=== PATIENT | male | born 1960 | race Caucasian/White ===

== ENCOUNTER 2023-11-06 06:03 | Observation (INO) ==
--- NOTE | 2023-10-21 14:11 | Anesthesiology Consultation ---
Date of Service October 21, 2023 Assessment & Plan (1) Encounter for pre-operative examination: Infectious disease screening: Per assessment on 10/21/23: No known infectious disease contacts or current infectious disease symptoms. No noted recent Covid positive test result. Chart Review Chart Review: Acceptable Risk for Surgery and Patient NOT seen in Pre Admission Testing History Surgery Operation Date: 11/06/23 07:30 Proposed Procedures p Robotic Laparoscopic Assisted Radical Retropubic Prostatectomy, Possible Open, Possible Pelvic Lymph Node Dissection - Jr Weaver MD Height/Weight Height: 5 ft 9 in Weight: 79.379 kg Allergies Allergy/AdvReac Type Severity Reaction Status Date / Time No Known Allergies Allergy Verified 10/21/23 12:53 Medications Home Medications Medication Instructions Recorded Confirmed Last Taken multivitamin 1 tab PO QAM 10/21/23 10/21/23 Unknown Past Medical History Medical History History of migraine Prostate cancer Dx 08/2023 Past Family History Family History Father Prostate cancer Mother No problems noted. Sister No problems noted. Sister No problems noted. Brother No problems noted. Brother No problems noted. Daughter No problems noted. Brother No problems noted. Son No problems noted. Past Surgical History Surgical History History of ankle surgery History of colonoscopy History of prostate biopsy History of tonsillectomy History of wisdom tooth extraction Social History Smoking Status: Current every day smoker Smoking cigarettes per day: 1 ppd Do You Dip or Chew Tobacco: Yes (occ) Hx Alcohol Use: Yes Alcohol type: beer and wine alcohol intake frequency: a few times a week Hx Substance Use: No substance use type: does not use Lab Results Anesthesia Preop Results Results Anesthesia Widget: WBC 7.84 K/ul (4.8-10.8) 10/09/23 Hgb 16.3 g/dl (14.0-18.0) 10/09/23 Hct 45.8 % (42.0-52.0) 10/09/23 Plt 242 K/uL (130-400) 10/09/23 Na 136 mmol/L (136-145) 10/09/23 K 4.2 mmol/L (3.5-5.1) 10/09/23 Cl 105 mmol/L (98-107) 10/09/23 CO2 27 mmol/L (21-32) 10/09/23 BUN 9 mg/dl (6-23) 10/09/23 Creat 0.88 mg/dl (0.6-1.4) 10/09/23 Glucose Level 102 mg/dl (70-99(Fasting)) H 10/09/23 Testing Laboratory Results UA (10/06/23)- negative Urine culture (10/06/23)- no growth Electrocardiogram Date: 10/09/23 NSR at 71bpm. iRBBB. Chest X-Ray Date: 10/09/23 FINDINGS: Lung volumes are normal. Lungs are clear. Suspected nipple shadows project over the lungs. There is no pneumothorax or pleural effusion. Cardiac size is normal. Mediastinal contours are normal. There is no evidence for pulmonary edema. IMPRESSION: No acute cardiopulmonary findings.
[2023-11-06] MEDS: LACTATED RINGER'S 1,000 ML IV SCH ×2 (06:37→14:30)
[2023-11-06] MEDS: LR 15ML/HR IV SCH (06:37)
[2023-11-06] MEDS: HEPARIN SOD 5,000 UNIT/0.5 ML VIAL SQ SCH ×2 (06:44→20:39)
[2023-11-06] MEDS ORDERED: HYDROmorphone INJ 2 MG/ML SYR/VIAL IV PRN (06:55)
[2023-11-06] MEDS ORDERED: PROMETHAZINE HCL 6.25 MG in SODIUM CHLORIDE 0.9% 50 ML IV PRN (06:55)
[2023-11-06] MEDS ORDERED: ATROPINE SULFATE 0.1 MG/ML 10ML SYR IV PRN (06:55)
[2023-11-06] MEDS ORDERED: ePHEDrine sulfate 50 MG/ML AMP IV PRN (06:55)
[2023-11-06] MEDS ORDERED: ONDANSETRON INJ 2 MG/ML 2 ML VIAL IV PRN ×2 (06:55→13:57)
[2023-11-06] MEDS ORDERED: ONDANSETRON INJ 2 MG/ML 2 ML VIAL ONE (06:56)
[2023-11-06] MEDS ORDERED: MIDAZOLAM HCL 1 MG/ML 2ML VIAL ONE (06:56)
[2023-11-06] MEDS ORDERED: LIDOCAINE 2% 2 ML VIAL/AMP(20MG/ML) INFIL ONE (06:56)
[2023-11-06] MEDS ORDERED: ROCURONIUM BROMIDE 10 MG/ML 5 ML VIAL IV ONE ×2 (06:56→08:23)
[2023-11-06] MEDS ORDERED: fentaNYL citrate PF 100 MCG/2 ML VIAL ONE (06:57)
[2023-11-06] MEDS ORDERED: SUGAMMADEX SODIUM 200 MG/2 ML VIAL IV ONE (06:57)
--- NOTE | 2023-11-06 07:44 | History & Physical Bridge Note ---
Date of Service November 06, 2023 History & Physical Bridge Note I have examined the patient, reviewed the History & Physical and in the interval since the performance of the History & Physical I have noted the following changes of clinical significance: no changes noted
[2023-11-06] MEDS: ceFAZolin 2000MG 2,000 MG/15 ML SYR IV SCH ×2 (08:02→15:55)
[2023-11-06] MEDS ORDERED: HYDROmorphone INJ 2 MG/ML SYR/VIAL ONE (08:22)
[2023-11-06] MEDS ORDERED: PHENYLEPHRINE 100MCG/ML 10ML SYR IV ONE (11:36)
[2023-11-06] MEDS: SURGICEL ABSORB HEMOSTAT 2IN X 14IN TOP ONE (11:42)
[2023-11-06] MEDS: BUPIVACAINE 0.5 % 5 MG/1 ML MPF 30ML VIAL ONE (11:58)
--- NOTE | 2023-11-06 12:15 | Operative Report ---
PG Post Operative Report Pre & Post Diagnosis Operation Date: 11/06/23 07:30 Pre-Op Diagnosis: Malignant Neoplasm of Prostate Post-Op Diagnosis: Malignant Neoplasm of Prostate I identified the patient and participated in the time-out.: Yes Procedure Operation Date: 11/06/23 07:30 Actual Procedures p Robotic Laparoscopic Assisted Radical Retropubic Prostatectomy, Pelvic Lymph Node Dissection - Jr Weaver MD Surgeon Jr Weaver MD Regional Branch Manager GARETH Landeros, GARETH Hebert Estimated Blood Loss 100 Findings Consistent with Post-Op Diagnosis Specimens 1) periprostatic fat 2) right pelvic lymph nodes 3) left pelvic lymph nodes 4) prostate, vas deferens, seminal vesicles Drains Watkins catheter per urethra, 10 cc in balloon Anesthesia Type General Complications none Disposition Accompanied Patient To Recovery: Yes Disposition: Recovery Room Indications Is a 63-year-old male followed by urology for prostate cancer. He presents to the OR today for robot-assisted radical prostatectomy and pelvic lymph node dissection. Description of Procedure The patient was identified in the preoperative holding area and informed consent was confirmed. He was then brought to the operating room where general anesthesia was initiated. He was placed supine on the operating room table with all pressure points appropriately padded. His abdomen and genitalia were prepped and draped in the usual sterile fashion and a timeout was performed. A 2 cm incision was made above the umbilicus and then a Veress needle was used to obtain access to the abdomen. Proper position was confirmed with the drop test and low initial insufflation pressure. The abdomen was insufflated with CO2 to a pressure of 12 mmHg. An 8 mm robotic port was placed in the incision and the robotic camera was inserted. The abdominal cavity was surveyed, demonstrating some left lower quadrant adhesions as well as some omental adhesions. The remaining robotic ports were placed under direct visualization, with 2 robotic ports on the left side and 1 robotic port on the right. A 12 mm clinical laboratory assistant port was placed on the right side as well. The omental adhesions were divided sharply to allow placement of a 5 mm clinical laboratory assistant port was placed in the right upper quadrant. The robot was then docked. The sigmoid adhesions were divided sharply to allow better exposure of the pelvis. Using electrocautery, the bladder was then dropped from the anterior wall of the abdomen, exposing the space of Retzius. This dissection was carried down to expose the pelvic brim and subsequently the anterior surface of the prostate and the endopelvic fascia. The fat overlying the anterior of the prostate was removed and sent for pathologic analysis, labeled as 'periprostatic fat'. The endopelvic fascia was then divided on each side to expose the lateral aspects of the prostate and the lateral aspects of the pedicles. A single 3-0 V-Loc suture was used to ligate the dorsal venous complex to prevent backbleeding in subsequent steps. The fourth arm of the robot was then used to put some gentle traction on the bladder, and the bladder neck was identified. Using electrocautery, the anterior bladder neck was dissected to expose the Watkins catheter, whose tip was removed from the bladder and held anteriorly. The posterior bladder neck dissection was then completed. At this point bilateral vas deferens were exposed and isolated. The vas deferens were cauterized and then divided. Bilateral seminal vesicles were dissected out as well. Denonvilliers fascia was then divided and the posterior prostate dissection was carried up as far as possible toward the urethra. The pedicles were then divided using combination of clips and sharp dissection, trying to use minimal electrocautery. On the right side, a nerve sparing approach was used. On the left side, a partial nerve sparing approach was used. Attention was turned anteriorly and the dorsal venous complex was divided using sharp dissection and electrocautery. The urethra was isolated and then divided sharply. At this point, the prostate was free and was placed in a specimen bag. Bilateral pelvic lymph node dissection was then performed, and the estrellita tissue was sent for pathologic analysis. The pelvis was inspected and meticulous hemostasis was ensured. Double-armed V- Loc suture was then used to re-anastomose the bladder neck with the urethra. Once this was complete, the anastomosis was tested by instilling 120 mL of normal saline into the bladder. Satisfied that the anastomosis was watertight, the catheter balloon was inflated with 10 mL of normal saline. Surgicel was were then applied to the lateral aspects of the pelvis for hemost asis. The robot was then undocked. The supraumbilical incision was extended and the prostate was extracted. 0 Vicryl suture was then used to close the fascia at this incision. All skin incisions were closed with 4-0 Monocryl suture and then a layer of Dermabond was applied. The patient was then awakened from anesthesia and was brought to the PACU in stable condition. GARETH Landeros acted as the bedside clinical laboratory assistant for the duration of the case. She assisted with gaining access, providing retraction and suction. Passing in sutures and applying clips as needed. She also helped with specimen extraction and closing. GARETH Hebert was also at the bedside learning how to be robot-clinical laboratory assistant. I attest to the content of the Intraoperative Record and any orders documented therein. Any exceptions are noted below.
[2023-11-06] MEDS: fentaNYL citrate PF 100 MCG/2 ML VIAL IV PRN (13:05)
[2023-11-06] MEDS ORDERED: oxyCODONE HCL IR 5 MG TAB (IMMEDIATE RELEASE) PO PRN (13:57)
[2023-11-06] MEDS ORDERED: HYDROmorphone INJ 0.5 MG/0.5 ML SYR IV PRN (13:57)
[2023-11-06] MEDS ORDERED: IBUPROFEN 200 MG TAB PO PRN (13:57)
[2023-11-06] MEDS ORDERED: bisacodyL 5 MG TABEC PO PRN (13:57)
--- NOTE | 2023-11-06 14:51 | Anesthesiology Progress Note ---
Date of Service November 06, 2023 Anesthesia Post Procedure Vital Signs Vital Signs: Temp Pulse Pulse Resp BP Pulse Ox O2 Del Method 11/06/23 13:40 36.9 C 82 16 121/76 94 Room Air 11/06/23 13:10 37.5 C 75 13 131/79 99 Nasal Cannula, Oxymask 11/06/23 13:00 37.5 C 79 15 132/83 98 Nasal Cannula, Oxymask 11/06/23 12:50 78 14 139/78 98 Nasal Cannula, Oxymask 11/06/23 12:40 78 14 138/79 98 Nasal Cannula, Oxymask 11/06/23 12:30 85 16 142/82 H 99 Nasal Cannula, Oxymask 11/06/23 12:21 36.6 C 83 14 142/80 H 100 Nasal Cannula, Oxymask 11/06/23 06:22 36.7 C 83 20 161/90 H 99 Room Air O2 Flow Rate 11/06/23 13:40 11/06/23 13:10 2 11/06/23 13:00 2 11/06/23 12:50 2 11/06/23 12:40 2 11/06/23 12:30 3 11/06/23 12:21 4 11/06/23 06:22 Transfer of Care Handoff Completed per policy Notes Mental Status: alert / awake / arousable and participated in evaluation Patient Amnestic to Procedure: Yes Nausea / Vomiting: adequately controlled Pain: adequately controlled Airway Patency, RR, SpO2: stable & adequate BP & HR: stable & adequate Hydration State: stable & adequate Anesthetic Complications: no major complications apparent and Pt Satisfied with anesthetic care
[2023-11-06] MEDS: oxyCODONE HCL IR 5 MG TAB (IMMEDIATE RELEASE) PO PRN (16:57)
[2023-11-06] MEDS: NICOTINE 14 MG/24 HR PATCH TD SCH (17:25)
[2023-11-06] MEDS: ACETAMINOPHEN 325 MG TAB PO SCH (18:11)
[2023-11-06] MEDS: DOCUSATE SODIUM 100 MG CAP PO SCH (20:39)
[2023-11-07] MEDS: HYDROmorphone INJ 0.5 MG/0.5 ML SYR IV PRN (06:20)
[2023-11-07 07:38] LABS: Basophils # (auto) 0.04 K/uL (0.00-0.20); Basophils % (auto) 0.4 %; Eosinophils # (auto) 0.09 K/uL (0.00-0.50); Hematocrit (blood only) 37.2 % (42.0-52.0); Immature Granulocytes # (auto) 0.04 K/uL (0.01-0.20); Immature Granulocytes % (auto) 0.4 %; Lymphocytes # (auto) 2.03 K/uL (1.20-3.40); Lymphocytes % (auto) 22.2 %; Mean Corpuscular Hemoglobin 32.3 pg (25.0-34.0); Mean Corpuscular Hgb Conc 34.9 g/dL (32.0-36.0); Mean Corpuscular Volume 92.5 fL (80.0-100.0); Mean Platelet Volume 9.5 fL (9.4-12.4); Monocytes # (auto) 1.01 K/uL (0.11-0.59); Monocytes % (auto) 11.1 %; Neutrophils # (auto) 5.92 K/uL (1.40-6.50); Neutrophils % (auto) 64.9 %; Platelet Count 205 K/uL (130-400); RDW Coefficient of Variation 12.3 % (11.5-14.5); RDW Standard Deviation 41.9 fL (36.4-46.3); Red Blood Count 4.02 M/uL (4.70-6.10); White Blood Count 9.13 K/ul (4.8-10.8)
[2023-11-07 08:16] LABS: BUN Creatinine Ratio 10.2 (10-20); Calcium 8.2 mg/dl (8.6-10.3); Creatinine Clr Calc Pharmacy 85.9 ml/min; Est GFR (Non-African American) 91.4 ml/min; Potassium 4.3 mmol/L (3.5-5.1)
--- NOTE | 2023-11-07 08:35 | Urology Progress Note ---
<Statement entered by Jr Weaver MD - 11/07/23 11:47> I have discussed Mr. Dowell's case with GARETH Landeros and agree with the above documentation. Doing well, s/p radical prostatectomy on 11/06/2023 should be ready for discharge home. -Jr Weaver MD. Date of Service November 07, 2023 Assessment & Plan (1) Prostate cancer: Plan: 63 yo/M POD #1 s/p Robotic Laparoscopic-Assisted Radical Retropubic Prostatectomy with Dr. Weaver. - Doing well, progressing as expected - Afebrile, stable vitals - Post op lab work reviewed and stable - Minimal pain - Tolerating regular diet - Encouraged OOB ambulation - Incisions appropriate - Watkins catheter intact, patent and draining reese red urine - Maintain Watkins catheter upon discharge - Expected clinical course reviewed, all questions answered - Anticipate discharge to home later this morning if he continues to progress as expected - Will arrange outpatient follow-up for catheter removal and pathology review Admission and Anticipated Discharge Date Admission Date: November 06, 2023 Subjective Patient seen and examined at bedside this morning No acute issues overnight, though he reports he slept poorly Notes some mild discomfort near incisions, well-managed with current regimen Tolerating regular diet He ambulated yesterday evening Passing flatus Denies nausea, vomiting, fever or chills Review of Systems Constitutional: as per Subjective / HPI Gastrointestinal: as per Subjective / HPI Genitourinary: + as per Subjective / HPI Physical Exam Constitutional: well developed and well nourished; no acute distress Respiratory: normal respiratory effort; no respiratory distress and no labored breathing Gastrointestinal (Abdomen): Inspection/Auscultation: abdomen normal to inspection Percussion/Palpation: abdomen soft; abdomen nontender Musculoskeletal: Head/Neck/Chest: normocephalic Skin: Incisions C/D/I with dermabond Neurologic: moves all extremities and awake Psychiatric: Orientation: alert and oriented x 3 Genitourinary: Waktins patent and draining reese red urine Results & Data Vital Signs (Past 12 Hours) Vital Signs Temp Pulse Resp BP BP Pulse Ox O2 Del Method 11/07/23 07:16 36.7 C 59 L 16 118/71 96 Room Air 11/07/23 05:08 36.5 C 67 16 114/70 95 Room Air 11/07/23 01:13 36.9 C 74 16 118/70 95 Room Air 11/06/23 21:00 36.8 C 70 16 129/82 98 Room Air PG Care Time/CCT Total # of Minutes Spent Total Time Spent with Patient: Total time spent is greater than 50% in coordination of care (as documented) at patient's floor/unit and/or counseling patient: Coding Level of Care Code None Diagnoses Prostate cancer C61
--- NOTE | 2023-11-07 11:49 | Discharge Summary ---
Date of Service November 07, 2023 Admission HPI Per Admitting Provider This is a 63-year-old male followed by urology for prostate cancer. He underwent robot-assisted radical prostatectomy on 11/06/2023 and was admitted in good condition postoperatively. Admission Exam Per Admitting Provider Constitutional well developed and well nourished; no acute distress Eyes + anicteric sclerae; pupils not irregular Respiratory normal respiratory effort; no respiratory distress, does not use accessory muscles and no cough Cardiovascular well perfused Gastrointestinal (Abdomen) Inspection/Auscultation: abdomen normal to inspection; abdomen not distended Musculoskeletal Extremities: extremities normal to inspection Skin normal turgor; no rashes and no lesions Neurologic moves all extremities and awake Psychiatric Orientation: alert and oriented x 3 Principal Diagnosis Prostate cancer Discharge Exam Constitutional: well developed and well nourished; no acute distress Respiratory: normal respiratory effort; no respiratory distress and no labored breathing Gastrointestinal (Abdomen): Inspection/Auscultation: abdomen normal to inspection Percussion/Palpation: abdomen soft; abdomen nontender Musculoskeletal: Head/Neck/Chest: normocephalic Skin: Incisions C/D/I with dermabond Neurologic: moves all extremities and awake Psychiatric: Orientation: alert and oriented x 3 Genitourinary: Colon patent and draining reese red urine Discharge Data Allergies Allergy/AdvReac Type Severity Reaction Status Date / Time No Known Allergies Allergy Verified 11/06/23 06:21 Procedures Performed Operation Date: 11/06/23 07:30 Actual Procedures p Robotic Laparoscopic Assisted Radical Retropubic Prostatectomy, Pelvic Lymph Node Dissection- Jr Weaver MD Hospital Course (1) Prostate cancer: He underwent radical prostatectomy on 11/06/2023 he was admitted postoperatively in good condition. By 11/06, he was tolerating a diet, ambulating and his pain was controlled on oral medications. He was discharged home in good condition. Total Time Total Time Spent Total Time Spent (In Minutes): 15 Discharge Plan Discharge Items Patient Disposition: Home - Self-Care Reason For Visit: Malignant Neoplasm of Prostate Discharge Diagnosis: Prostate cancer Activity: Per Instructions section Bathing Comment: Okay to shower after discharge, no tub bath or soaking Non-emergency contact: Urologist Call non-emergency contact if: you have any medication questions, your pain is not controlled, you have a fever, your temperature is above 101, your wound has increased redness and your wound has increased drainage Follow-up/Referrals: Jr Weaver MD [Physician] - 11/12/23 2:30 pm PCP,NO [Primary Care Provider] - Diet: Regular Addtl Attending Provider Instructions: The surgery you had was: Robot-assisted radical prostatectomy with bilateral pelvic lymph node dissection. Please take all medications as prescribed and keep all follow-ups as scheduled. Please call our office at [phone] with any questions, concerns or need to reschedule appointments for any reason. We are happy to assist you Medications: Please take all medications as prescribed. For pain control, you can take tylenol every 6 hours. You can also take ibuprofen every 6 hours. If you have been prescribed a narcotic pain medication, please take this according to the instructions on the label. You have been prescribed a single dose of antibiotics (Bactrim) to be taken 1 hour prior to your appointment for colon catheter removal. Activity: We recommend having someone with you for the first few days after surgery to help care for you. For the first 2 weeks after surgery, we would like you to get up and walk arou nd your house. However, we recommend limit physical activity that would increase your heart rate. This will allow your body to rest and heal. Take naps if you feel tired. Don't lift anything heavier than 10 pounds, mow the law or ride a bicycle until your follow-up appointment. Please avoid long car rides. Home Care: Unless directed otherwise, drink 6 to 8 glasses of water a day (enough to keep your urine light colored). This will also help keep a healthy flow of urine. We recommend using a stool softener such as colace or miralax for the first two weeks to avoid constipation. Colon Catheter care: Keep the catheter well secured with either a leg back or leg strap with large bag. Empty your bag when it's about half full. You may notice some blood in the bag. This is normal after surgery and while the catheter is in place. Use mild soap (such as Dove or Dial) and water to wash the catheter and the head of your penis daily, or more frequently if needed. Return to your normal diet, we encourage good protein intake to promote healing. You may shower as normal. Please avoid tub baths or soaking until catheter removed and incisions well healed. Wearing sweat pants while you have the catheter is recommended, they will be more comfortable. Follow-up We will have you come to the office in approximately 7 days for catheter removal. - Please remember to take your dose on antibiotics 1 hour prior to this appointment. We will review pathology results at that appointment and discuss further followup. Call [facility] at [phone] right away if you have any of the following: Chest pain or trouble breathing (call [phone] or go to the hospital) Fever of 101F or higher, uncontrolled vomiting Heavy bleeding, clots, or bright red blood from the catheter Catheter that falls out or stops draining Foul-smelling discharge from your catheter Redness, swelling, warmth, or increased pain at your incision site Drainage, pus, or bleeding from your incision Pending Studies at Discharge: No Stand-Alone Forms: My [facility], Pain - Opioid Pain Management, Smoking Cessation Medications and DC Order Prescriptions: New sulfamethoxazole-trimethoprim [Bactrim DS] 800-160 mg tablet 1 tab PO ONCE 1 Days Qty: 1 0RF docusate sodium [Colace] 100 mg capsule 100 mg PO BID Qty: 60 0RF Rx Instructions: Take twice daily for 2 weeks, then as needed for constipation. oxycodone 5 mg tablet 5 mg PO Q8H PRN (Reason: pain) Qty: 7 0RF Rx Instructions: post op Continued multivitamin Tablet 1 tab PO QAM Discharge Orders: Discharge Order (Routine); Ordered 11/07/23 Ordered By: Salome Pastrana/Other Patient Handouts: Urinary Catheter Bag Empty Clean, Indwelling Urinary Catheter Dc, Leg Bag Care Dc, ED Colon Catheter, Care Admission Data Admit Date/Time: 11/06/23 12:20 Attending Provider: Jr Weaver Admit Provider: Jr Weaver Primary Care Provider: PCP,NO Other Interventions: Discharge Summary Assessment (RN) Last Done: 11/07/23 09:35 Coding Level of Care Code 61501 IN/OBS DISCH 30 MIN/LESS Diagnoses Prostate cancer C61
== END 2023-11-07 10:11 | disposition home or self-care (01) ==
LOC: ASU 06:03 → INTOOBSV 12:20 → 3N 12:20